=== PATIENT | female | born 1960 | race Caucasian/White ===

== ENCOUNTER 2024-02-18 15:45 | Emergency (ER) | payer OTHER ==
[~2024-02-18 15:45] MED LIST: Iopamidol 370 76% 100 ML VIAL ONE
[2024-02-18 19:05] LABS: Bilirubin Neg (Negative); Blood, Urine 10 (Negative); Glucose, Urine (Dipstick) Normal (Negative); Ketone, Urine 5 mg/dL (Negative); Leukocyte Negative (Negative); Nitrite Negative (Negative); Protein, Urine (Dipstick) 30 mg/dl (Neg-Trace); Specific Gravity, Urine 1.025 (1.005-1.030); Urobilinogen Normal mg/dL (Less than 2)
[2024-02-18 19:07] LABS: #Basophils 0.05 10x3/uL (0.0-0.2); #Eosinophils 0.01 10x3/uL (0.0-0.5); #Monocytes 1.23 10x3/uL (0.0-1.1); #Neutrophils 11.43 10x3/uL (1.5-8.4); %Basophils 0.3 % (0.0-2.0); %Eosinophils 0.1 % (0.0-6.0); %Lymphocytes 13.8 % (18.0-47.0); %Monocytes 8.3 % (0.0-10.0); %Neutrophils 77.2 % (40.0-75.0); Hematocrit 47.4 % (34.9-44.5); Hemoglobin 15.9 g/dL (12.0-15.5); Mean Corpuscular HGB CONC 33.5 g/dL (32.0-36.0); Mean Corpuscular Volume 83.6 fL (81.6-98.3); Mean Platelet Volume 10.2 fL (7.4-10.4); Platelet Count 297 10x3/uL (150-450); RBC Distribution Width 13.4 % (11.5-14.5); Red Blood Cell (RBC) Count 5.67 10x6/uL (3.90-5.03); White Blood Cell (WBC) Count 14.8 10x3/uL (3.5-10.5)
[2024-02-18 19:14] LABS: Clarity Hazy (Clear)
[2024-02-18 19:21] LABS: ALT (SGPT) 48 U/L (8-55); AST (SGOT) 29 U/L (5-34); Albumin 3.9 g/dL (3.4-4.8); Alkaline Phosphatase 109 U/L (40-110); Anion Gap 15 mmol/L (10-20); BUN (Urea Nitrogen) 11 mg/dL (9.8-20.1); Bilirubin, Total 0.9 mg/dL (0.2-1.2); Calc. Creatinine Clearance 0 mL/min (70-130); Calcium 9.7 mg/dL (7.8-10.44); Carbon Dioxide 24 mmol/L (23-31); Chloride 104 mmol/L (98-107); Estimated GFR 99; Globulin 3.8 g/dL (2.4-3.5); Glucose 118 mg/dL (80-115); Lipase 6 U/L (8-78); Potassium 3.1 mmol/L (3.5-5.1); Protein, Total 7.7 g/dL (5.8-8.1); Sodium 140 mmol/L (136-145)
[2024-02-18 19:35] LABS: RBC/HPF 0-3 HPF (0-3)
[2024-02-18 19:36] LABS: Bacteria/HPF 2+ HPF (None Seen); CAUTI Indications for Culture Pelvic or flank pain; Mucous/LPF 4+ LPF (<2+)
[2024-02-18 19:39] LABS: Urine Culture Reflex No No
[2024-02-18] MEDS ORDERED: Potassium Chloride 20 MEQ TAB ONE (19:43)
[2024-02-18 19:45] LABS: Hep B Surf Ag Non-Reactive S/CO (NonReactive)
[2024-02-18 22:57] LABS: Hep A IgM AB NONREACTIVE (NonReactive); Hep A IgM S/CO 0.19 S/CO (0-0.79); Hep B Core IgM Index 0.07 S/CO (0-0.79); Hep C IgG Ab NONREACTIVE S/CO (NonReactive); Hep C Index 0.11 S/CO (0-0.79); Hepatitis B Core IgM Abs NONREACTIVE S/CO (NonReactive)
[2024-02-19 00:09] LABS: HBsAg Index 0.26 S/CO (0-0.99)
== END 2024-02-18 21:23 | disposition home or self-care (01) ==
LOC: CSHERS 15:45
DX: R19.7 Diarrhea, unspecified (principal); I10 Essential (primary) hypertension; E87.6 Hypokalemia; R80.9 Proteinuria, unspecified; R11.2 Nausea with vomiting, unspecified
CPT/HCPCS: 36415; 74177; 80053; 80074; 81001; 83690; 85025; 93005; Q9967